=== PATIENT | male | born 1960 | race Caucasian/White ===

== ENCOUNTER 2018-06-09 20:40 | Inpatient (IN) | payer OTHER ==
[~2018-06-09] VITALS: Ht 182.9 cm; Wt 126.6 kg
[~2018-06-09 20:40] MED LIST: ADULT LOW DOSE81 MG PO; AMBEREN; DIOVAN 80 MG TA80 M1 PO; HYDROCHLOROTHIA25 M1 PO; HYDROCODONE-AP1 EAC6 PO; IBUPROFEN 800800 M1 PO; LOPRESSOR100 MG; MULTIVITAMINS1 EAC7 PO; SYNTHROID150 MCG PO; VALSARTAN-HCTZ1 EACH PO
[2018-06-09 20:42] VITALS: BP 146/85
[2018-06-09] MEDS ORDERED: VALSARTAN40 MG PO (20:58)
[2018-06-09] MEDS ORDERED: CARVEDILOL3.125 MG PO (21:00)
[2018-06-09 21:01] LABS: ABSOLUTE BASOPHILS 0.1 thou/uL (0.0-0.2); ABSOLUTE EOSINOPHILS 0.1 thou/uL (0.0-0.7); ABSOLUTE LYMPHOCYTES 1.8 thou/uL (0.8-5.3); ABSOLUTE MONOCYTES 0.7 thou/uL (0.0-1.2); ABSOLUTE NEUTROPHILS 5.8 thou/uL (1.6-8.1); BASOPHILS 1.2 %; HEMATOCRIT 44.8 % (42.0-52.0); HEMOGLOBIN 15.6 gm/dL (14.0-18.0); LYMPHOCYTES 21.5 %; MCH 32.1 pg (26.0-34.0); MCHC 34.9 g/dL (28.0-37.0); MONOCYTES 8.5 %; NUCLEATED RBCS 0 /100WBC; PLATELET COUNT* 218 thou/uL (150-400); POLYS 67.8 %; RBC 4.87 mil/uL (4.50-6.00); RDW-CV 13.1 % (10.5-14.5); WBC 8.6 thou/uL (4.0-11.0)
[2018-06-09] MEDS ORDERED: LIPITOR 20 MG T20 M1 PO (21:02)
[2018-06-09 21:11] LABS: PROTIME 10.7 Seconds (9.20-11.50)
[2018-06-09 22:01] LABS: ALBUMIN 3.6 g/dL (3.4-5.0); ALKALINE PHOSPHATASE 63 U/L (46-116); ANION GAP 10 mmol/L (7-16); BUN 17 mg/dL (7-18); CALCIUM 9.1 mg/dL (8.5-10.1); CHLORIDE 103 mmol/L (98-107); CO2 29 mmol/L (21-32); CREATININE 1.3 mg/dL (0.6-1.3); GLUCOSE 245 mg/dL (70-99); LIPASE 83 U/L (73-393); NT-PRO BRAIN NAT PEPTIDE 56 pg/mL (<300); POTASSIUM 3.7 mmol/L (3.5-5.1); SGOT 32 U/L (15-37); SGPT 48 U/L (30-65); SODIUM 142 mmol/L (136-145); TOTAL BILIRUBIN 0.9 mg/dL (<0.1-1.0); TOTAL PROTEIN 7.3 g/dL (6.4-8.2); TROPONIN-I LEVEL <0.06 ng/mL (<0.06)
[2018-06-09 23:46] VITALS: BP 117/66
[2018-06-10] VITALS (7 sets, daily range): BP systolic 119–153; BP diastolic 74–102
--- NOTE | 2018-06-10 04:43 | NUR ---
RECEIVED REPORT AND ASSUMED CARE OF PATIENT FROM ED AT APPROXIMATELY 0000. 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 VSS ON ROOM AIR. PATIENT HAS C/O DISCOMFORT IN CHEST AND RIGHT ARM, DESCRIBE A DULL PRESSURE. UNABLE TO RATE BUT HOLDING CHEST. PATIENT SAYS PAIN IS INTERMITTENT. DENIES NEED FOR PAIN MEDICATION. PATIENT NPO FOR CARDIOLOGY CONSULT IN AM. VERBALIZES UNDERSTANDING. UP INDEPENDENTLY WITH NO ISSUES. INSTRUCTED TO USE CALL LIGHT FOR ANY NEEDS. CALL LIGHT WITHIN REACH
--- NOTE | 2018-06-10 08:00 | NUR ---
ASSUMED CARE OF PT ASSESSED AND DOCUMENTED. PT IS ON CARDIAC MONITR TRACING SR 1ST DEGREE HR 72. PT IS A&O WITH NO C/O PAIN. VSS WNL. PT IS AFEBRILE. HE IS ON ROOM AIR. PT IS NPO FOR CARDIAC CONSULT. BED IS IN LOW POSITION CALL LIGHT IS IN REACH. WM.
--- NOTE | 2018-06-10 13:32 | 2DMMODE ---
[place] [address] 2 D/M-MODE ECHOCARDIOGRAM Name: EMERY COOL JR Room: [address] IN [facility]#: [id number] Admission: 06/09/18 Attend Phys: Louise Farah MD Discharge: Date of : 64 Date of Service: 06/10/18 1332 Report #: [id number] THIS REPORT FOR: //name// APPROVED REPORT Study performed: 06/10/2018 10:24:15 EXAM: Comprehensive 2D, Doppler, and color-flow Echocardiogram Patient Location: In-Patient Room #: 229 Status: routine BSA: 2.45 HR: 62 bpm BP: 134/85 mmHg Rhythm: NSR Other Information Study Quality: Good Indications CAD Chest Pain 2D Dimensions IVSd: 10.75 (7-11mm) LVOT Diam: 22.73 (18-24mm) LVDd: 42.23 mm PWd: 12.15 (7-11mm) Ascending Ao: 33.68 (22-36mm) LVDs: 28.00 (25-40mm) Aortic Root: 35.89 mm Volumes Left Atrial Volume (Systole) LA ESV Index: 20.50 mL/m2 Aortic Valve AoV Peak Brenden.: 1.11 m/s AO Peak Gr.: 4.91 mmHg LVOT Max P.68 mmHg AO Mean Gr.: 3.03 mmHg LVOT Mean P.35 mmHg LVOT Max V: 1.08 m/s AO V2 VTI: 24.15 cm LVOT Mean V: 0.71 m/s ELISHA (VTI): 3.91 cm2 LVOT V1 VTI: 23.28 cm Mitral Valve E/A Ratio: 1.46 MV Decel. Time: 200.98 [place] [address] 2 D/M-MODE ECHOCARDIOGRAM Name: EMERY COOL JR Room: [address] IN ..#: [id number] Admission: 06/09/18 Attend Phys: Louise Farah MD Discharge: Date of : 64 Date of Service: 06/10/18 1332 Report #: [id number] MV E Max Brenden.: 0.70 m/s MV PHT: 58.28 ms MVA (PHT): 3.77 cm2 TDI E/Lateral E': 5.83 E/Medial E': 7.00 Medial E' Brenden.: 0.10 m/s Lateral E' Brenden.: 0.12 m/s Pulmonary Valve PV Peak Brenden.: 0.98 m/s PV Peak Gr.: 3.87 mmHg Left Ventricle The left ventricle is normal size. There is normal LV segmental wall motion. There is normal left ventricular wall thickness. Left ventricular systolic function is normal. The left ventricular ejection fraction is within the normal range. LVEF is 55-60%. The left ventricular diastolic function is normal. Right Ventricle The right ventricle is normal size. The right ventricular systolic function is normal. Atria The left atrium size is normal. The right atrium size is normal. Aortic Valve The aortic valve is normal in structure. No aortic regurgitation is present. There is no aortic valvular stenosis. Mitral Valve Moderate mitral annular calcification. There is no mitral valve regurgitation noted. No evidence of mitral valve stenosis. Tricuspid Valve The tricuspid valve is normal in structure. Trace tricuspid regurgitation. Unable to assess PA pressure. Pulmonic Valve The pulmonary valve is normal in structure. Trace pulmonic regurgitation. Great Vessels The aortic root is normal in size. IVC is normal in size and collapses >50% [place] [address] 2 D/M-MODE ECHOCARDIOGRAM Name: EMERY COOL JR Room: [address] IN [facility]#: [id number] Admission: 06/09/18 Attend Phys: Louise Farah MD Discharge: Date of : 64 Date of Service: 06/10/18 1332 Report #: [id number] Pericardium There is no pericardial effusion. <Conclusion> The left ventricle is normal size. There is normal left ventricular wall thickness. Left ventricular systolic function is normal. The left ventricular ejection fraction is within the normal range. LVEF is 55-60%. The left ventricular diastolic function is normal. The right ventricle is normal size. The left atrium size is normal. The aortic valve is normal in structure. Moderate mitral annular calcification. There is no mitral valve regurgitation noted. No evidence of mitral valve stenosis. The tricuspid valve is normal in structure. IVC is normal in size and collapses >50% with inspiration. There is no pericardial effusion. There is normal LV segmental wall motion. <ELECTRONICALLY SIGNED> By: Catalino Quarles MD, FACC 06/10/18 1332 133 133 Catalino Quarles MD, FACC /INF
[2018-06-10 13:46] LABS: CHOLESTEROL 114 mg/dL (<200); HDL CHOLESTEROL 32 mg/dL (>40); LDL CHOLESTEROL 60 mg/dL (<100); TC:HDL 3.6 Ratio (Not establshd); TRIGLYCERIDE 113 mg/dL (<150); VLDL 23 mg/dL (<40)
--- NOTE | 2018-06-10 13:46 | NUR ---
LAB CALLED THEY CANNOT DO THE HEPATIC GALLBLADDER TEST TOMORROW AND NEED TO POSTPONE FOR 1 DAY. THIS IS DUE TO TO MUCH ACTIVITY PT TO HAVE RESTING PART OF STRESS TOMORROW.
[2018-06-10 13:47] LABS: SERUM ASSESSMENT CLEAR
--- NOTE | 2018-06-10 15:06 | EKG ---
[place] [address] ELECTROCARDIOGRAM REPORT Name: EMERY COOL JR Room: [address] ADM IN .R.#: [id number] Admission: 06/09/18 Attend Phys: Louise Farah MD Discharge: Date of : 64 Report #: [id number] THIS REPORT FOR: //name// [facility] ED Test Date: 2018-06-09 Test Time: 20:46:44 Pat Name: EMERY COOL Department: Room: [facility] Gender: M Mail Carrier: BRIDGETTE : 1960 Requested By: Linette Dennison Order Number: [id number] MD: Catalino Quarles Measurements Intervals [place] Rate: 75 P: 28 NJ: 212 QRS: 50 QRSD: 93 T: 74 QT: 381 QTc: 426 Interpretive Statements Sinus rhythm Prolonged [place] interval Baseline wander in lead(s) V6 Compared to ECG 11/30/2015 12:09:10 First degree AV block now present Electronically Signed On 06-10-2018 15:06:23 CDT by Catalino Quarles [email or web address] <ELECTRONICALLY SIGNED> By: Catalion Quarles MD, [facility] 06/10/18 1506 Catalino Quarles MD, [facility] /EPI
--- NOTE | 2018-06-10 15:55 | NUR ---
SPOKE TO THE PATIENT TO COMPLETE INITIAL ASSESSMENT, AND TO INFORM OF THE ROLE OF CASE MANAGEMENT. PATIENT ALERT, ORIENTED, AND INDEPENDENT WITH ADL'S. PATIENT ACTIVE, WORKS, AND DRIVES. PATIENT RESIDES AT HOME WITH SPOUSE. PATIENT USES 0 DME. PATIENT HAS NO HX OF HH OR SNF. PATIENT PLANS TO RETURN HOME AT D/C AND DOES NOT ANTICIPATE ANY D/C PLANNING NEEDS.
--- NOTE | 2018-06-10 16:45 | CARDNUC ---
[place] [address] CARDIAC NUCLEAR IMAGING REPORT Name: EMERY COOL JR Room: [address] IN [facility]#: [id number] Admission: 06/09/18 Attend Phys: Louise Farah MD Discharge: Date of : 64 Date of Service: 06/10/18 1645 Report #: [id number] THIS REPORT FOR: //name// APPROVED REPORT Imaging Protocol: Stress Tc-99m/Rest Tc-99m 2 days Study performed: 06/10/2018 08:40:00 Indication: Chest pain, Dyspnea, Fatigue Patient Location: Out-Patient Room #: 229 Stress Tech: Esther Clark Stress Nurse: Sarah Bonilla RN NM Tech:LAINE Adan BMI: 0 Medical History Medical History: cabg, cad, hyperlipidemia, hypertension, diabetes Medications: enoxaparin, carvedilol, asa, atorvastatin, losartan Allergies: iodine, penicillin Cardiac Risk Factors: age, hyprlipidemia, hypertension, diabetes, family hx Previous Cardiac Procedures: cabg Exercise History: Physically active Meds Held (24 hrs): carvediklol Exercise Stress At peak stress, the patient was injected intravenously with 36.8mCi of Tc-99m Sestamibi. Time of stress injection: 1135 Date: 06/10/2018 Administration Route: IV Gated Stress SPECT was performed 30 minutes after stress injection. The images were gated to evaluate regional wall motion and calculate left ventricular ejection fraction. Prone imaging was performed. Stress Test Details Stress Test: Pharmacologic stress was paired with low level exercise. Reason for pharmacologic stress test: changed from exercise stress test due to inability to [place] [address] CARDIAC NUCLEAR IMAGING REPORT Name: EMERY COOL JR Room: [address]#: [id number] Admission: 06/09/18 Attend Phys: Louise Farah MD Discharge: Date of : 64 Date of Service: 06/10/18 1645 Report #: [id number] HR Max Heart Rate (APMHR): 164 bpm Resting HR: 71 bpm Target HR (85% APMHR): 139 bpm Max HR Achieved: 104 bpm % of APMHR: 63 Recovery HR: 84 bpm BP Resting BP: 143/84 mmHg Max BP: 204/73 mmHg Recovery BP: 132/80 mmHg ECG Resting ECG: Sinus Rhythm Stress ECG: Sinus Tachycardia ST Change: None Arrhythmia: None Recovery ECG: Sinus Rhythm Recovery ST Change: None Recovery Arrhythmia: None Clinical Reason for Termination: Completed protocol The patient tolerated Lexiscan infusion without significant symptoms. Nurse Comments pt unable to reach target heartrate due to bad ankle. pt changed to walking leesa Stress ECG Conclusion The baseline 12-lead EKG showed sinus rhythm with no significant ST or T wave abnormality. EKGs obtained during and post Lexiscan infusion show sinus rhythm and sinus tachycardia with no significant ST or T wave changes when compared to baseline. There were no stress-induced arrhythmias. Study Quality Study: Good Artifact: No artifact Study Data Post stress, the left ventricular ejection was 66%.. Perfusion Post stress imaging obtained in the supine and prone position show [place] [address] CARDIAC NUCLEAR IMAGING REPORT Name: EMERY COOL JR Room: [address] IN [facility]#: [id number] Admission: 06/09/18 Attend Phys: Louise Farah MD Discharge: Date of : 64 Date of Service: 06/10/18 1645 Report #: [id number] defect to suggest infarct or ischemia. Wall Motion Normal left ventricular wall motion. Nuclear Conclusion ECG Findings: negative for ischemia Clinical Findings: negative for ischemia Nuclear Findings: negative for ischemia Exercise Capacity: not assessed Left Ventricular Function: normal Risk Study: low Myocardial perfusion images show no defect to suggest infarct or ischemia. Left ventricular systolic function appears normal on gated studies. This is not a high risk study. <Conclusion> The baseline 12-lead EKG showed sinus rhythm with no significant ST or T wave abnormality. EKGs obtained during and post Lexiscan infusion show sinus rhythm and sinus tachycardia with no significant ST or T wave changes when compared to baseline. There were no stress-induced arrhythmias. <ELECTRONICALLY SIGNED> By: Bhanu Dang MD, FACC 06/10/185 44 44 Bhanu Dang MD, FACC /INF
--- NOTE | 2018-06-10 16:56 | NUR ---
DR BOOTH CALLED STRESS TEST IS NORMAL. CALLED [facility] TO SEE IF HEPATIC GALLBLADDER TEST COULD BE RESCHEDULED NO ANSW.
--- NOTE | 2018-06-10 17:02 | NUR ---
DR BOOTH CALLED PTS STRESS TEST IS NORMAL CALLED [facility] TO RESCHEDULE HEPATIC GALLBLADDER TEST NO ANSW. SENT YOU CALL MESSAGE TO DR HOWARD.
--- NOTE | 2018-06-10 17:12 | NUR ---
DR HOWARD CALLED SAID TO MAKE PT NPO AFTER MIDNIGHT AND CALL [facility] AT 7AM AND GET PT ON THE SCHEDULE.
--- NOTE | 2018-06-10 17:30 | NUR ---
PT RESTING IN HIS ROOM. HE WANTED TO GO HOME AND COME BACK TOMORROW. EDUCATION GIVEN ON DEMAND. HOURLY ROUNDING CONT.
[2018-06-11 04:00] VITALS: BP 128/73
--- NOTE | 2018-06-11 04:42 | NUR ---
ALERT ORIENTED. UP AD MECCA IN ROOM. TELEMETRY SHOWS SR 1ST DEGREE AVB. PT NPO AFTER NM FOR HEPATOBILLIARY PIPIDA SCAN. DENIES CP.
[2018-06-11 08:00] VITALS: BP 170/100
[2018-06-11] MEDS ORDERED: PANTOPRAZOLE SO40 M1 PO (10:32)
[2018-06-11 11:49] VITALS: BP 170/100
--- NOTE | 2018-06-11 14:01 | NUR ---
ORDER RECEIVED TO DISCHARGE PATIENT HOEM OT SELF CARE. MED REC, MEDICATION EDUCATION, STROKE PREVENTION, AND NEED FOR FOLLOW UP APPOINTMENT FOR EGD ON Thursday06/14/18 COMPLETED AND FRANK STATED UNDERSTANDING. IV AND TELEMETRY PACK REMOVED. HOURLY ROUNDING COMPLETD FOR PATIENT SAFETY AND PATIENT WAS IN NOAPPARENT SIGNS OF DISTRESS AT TIME OF DISCHARGE. DISCHARGE TIME OF 12:15.
== END 2018-06-11 12:23 | disposition home or self-care (01) | DRG 313 ==
LOC: M.ERS 20:40 → M.2W 22:12 → M.TBA-ER 22:12 → M.2W 23:47
PROVIDERS: Emergency Medicine; Internal Medicine; Registered Nurse; ADMIT Family Medicine
DX: R07.9 Chest pain, unspecified (principal); I10 Essential (primary) hypertension; E11.9 Type 2 diabetes mellitus without complications; I25.10 Atherosclerotic heart disease of native coronary artery without angina pectoris; E78.5 Hyperlipidemia, unspecified; E03.9 Hypothyroidism, unspecified; Z91.041 Radiographic dye allergy status; Z88.0 Allergy status to penicillin; Z91.013 Allergy to seafood; Z79.82 Long term (current) use of aspirin; Z79.899 Other long term (current) drug therapy; Z87.891 Personal history of nicotine dependence; Z95.1 Presence of aortocoronary bypass graft; Z90.5 Acquired absence of kidney